=== PATIENT | female | born 1995 | race Caucasian/White ===

== ENCOUNTER 2021-04-13 12:28 | Emergency (ER) | payer OTHER, SELFPAY ==
--- NOTE | ~2021-04-13 | CT_ITS ---
EXAMINATION: CT abdomen pelvis wo con DATE: 04/13/2021 14:01 INDICATION: Right flank pain TECHNIQUE: Computed tomography (CT) of the abdomen and pelvis was performed without intravenous contr ast. The dose-length product (DLP) was 356.09 mGy-cm. Automated exposure control and iterative recons truction technique were employed. COMPARISON: None FINDINGS: The lung bases are clear. The heart size is normal. The liver, spleen, pancreas, gallbladde r, and adrenal glands are normal. There is a 3 mm nonobstructing stone of the left kidney. No stones are identified in the right kidney, the ureters, or the bladder. There is no hydronephrosis or hydrou reter. There is mild fat stranding surrounding the urinary bladder. No pathologically enlarged abdomi nal or pelvic lymph nodes are identified. There is an increase in number of nonpathologically enlarge d retroperitoneal lymph nodes, likely reactive. There is no free intraperitoneal gas or evidence of b owel obstruction. Surgical changes in the cecum likely reflect prior appendectomy. There is a small f at-containing umbilical hernia. IMPRESSION: 1. Fat stranding surrounding urinary bladder which can be seen in the setting cystitis. 2. Nonobstructing left nephrolithiasis. Reviewed, dictated and finalized at location A. IMPRESSION: 1. Fat stranding surrounding urinary bladder which can be seen in the setting c ystitis. 2. Nonobstructing left nephrolithiasis.
[2021-04-13 12:35] VITALS: BP 165/74; PULSE 89; RESP 20; TEMP 36.7; O2SAT 96
[2021-04-13 13:08] LABS: Add Urine Microscopic? YES; Appearance Urine Sl Cloudy (Clear); Bilirubin Urine Negative (Negative); Blood Urine 3+ (Negative); Color Urine Brown (Yellow); Glucose Urine UA Negative (Negative); Ketones Urine Negative (Negative); Leukocyte Esterase Ur 2+ LEU/UL (Negative); Nitrate Urine Positive (Negative); Protein Urine 2+ (Negative); Specific Grav Ur >= 1.030 (1.010-1.020); Urobilinogen Urine 0.2 mg/dL (0.2-1.0)
[2021-04-13 13:16] LABS: Bacteria Urine 2+ /hpf; Squamous Epithelial Cell Urine Few /hpf (Few); WBC Urine 31-50 /hpf (0-3)
[2021-04-13 13:27] LABS: Basophils Absolute Auto 0.06 K/mm3 (0.00-0.10); Basophils Percent Auto 0.4 % (0.0-1.0); Eosinophils Absolute Auto 0.45 K/mm3 (0.02-0.50); Eosinophils Percent Auto 3.2 % (1.0-6.0); Hematocrit 37.7 % (35.0-49.0); Hemoglobin 12.2 g/dL (12.0-15.0); Immature Granulocyte Absolute 0.05 K/mm3 (0.00-0.00); Immature Granulocyte Percent A 0.4 % (0.0-0.0); Lymphocytes Absolute Auto 3.14 K/mm3 (1.10-4.50); Lymphocytes Percent Auto 22.1 % (18.0-42.0); Mean Corpuscular HGB Conc 32.4 g/dL (32.0-36.0); Mean Corpuscular Hemoglobin 30.2 pg (27.0-31.0); Mean Corpuscular Volume 93.3 fL (78.0-102.0); Mean Platelet Volume 9.6 fl (9.2-11.8); Monocytes Absolute Auto 1.14 K/mm3 (0.10-0.90); Neutrophils Absolute Auto 9.4 K/mm3 (1.7-7.2); Neutrophils Percent Auto 65.9 % (50.0-70.0); Platelet Count Result 285 K/mm3 (150-420); Red Blood Count 4.04 M/mm3 (4.20-5.40); White Blood Count 14.2 K/mm3 (4.8-10.8)
[2021-04-13 13:31] LABS: Urine Pregnancy Test Negative
[2021-04-13 13:42] LABS: Alanine Aminotransferase 36 U/L (14-59); Albumin Level 3.5 g/dL (3.4-5.0); Alkaline Phosphatase 71 U/L (46-116); Anion Gap 10 mmol/L (8-16); Aspartate Amino Transferase 11 U/L (15-37); Bilirubin,Total 0.3 mg/dL (0.00-1.00); Blood Urea Nitrogen 14 mg/dL (7-18); Calcium 8.7 mg/dL (8.5-10.1); Carbon Dioxide 27 mmol/L (21-32); Chloride 104 mmol/L (98-108); Estimated CRCL calculation 84 ml/min; Estimated Glomerular Filt Rate > 60; Glucose 89 mg/dL (70-99); Osmolality Calculated 291 mOsm/kg (285-295); Potassium 3.9 mmol/L (3.5-5.1); Sodium 141 mmol/L (136-145); Total Protein 7.4 g/dL (6.4-8.2)
[2021-04-13 13:54] LABS: Pregnancy On Board Control Positive
--- NOTE | 2021-04-13 14:14 | PC.NURSE ---
no needs at this time. awaiting ct results.
--- NOTE | 2021-04-13 14:18 | ED.FEMALEGU ---
HPI - Female Genitourinary General Chief complaint: Urogenital-Female Stated complaint: possible bladder infection Time Seen by Provider: 04/13/21 12:40 Source: patient Mode of arrival: ambulatory Limitations: no limitations History of Present Illness HPI Narrative: Patient comes in after having after having pain moderately severe, sharp, starting over her bladder area on Saturday. This has been ongoing since then. Then this am she states she started having pain in her back mostly on the right side, which has also been sharp. She complains of frequency, urgency, and dysuria over the last 2 days, which have been ongoing getting her attention. MD elicited complaint: dysuria and UTI Onset (ago): day(s) Location of symptoms: low back (radiating to genital area) Severity: moderate Quality of pain: sharp Consistency: intermittent Vaginal discharge: none Vaginal bleeding: none Urinary symptoms: Dysuria, Urgency and Frequency Exacerbating factors: urination Associated symptoms: denies other symptoms Treatment prior to arrival: none Patient : No Related Data Home Medications Medication Instructions Recorded Confirmed bupropion HCl 300 mg PO DAILY 04/13/21 04/13/21 omeprazole 40 mg PO DAILY 04/13/21 04/13/21 Allergies Allergy/AdvReac Type Severity Reaction Status Date / Time pain medication during labor AdvReac Unknown Uncoded 04/13/21 13:37 Review of Systems ENT: Reports system reviewed and no additional complaints, except as documented Cardiovascular: Cardiovascular: Reports no additional cardiovascular complaints Respiratory: Respiratory: Reports no additional respiratory complaints Gastrointestinal: Gastrointestinal: Reports no additional gastrointestinal complaints Genitourinary: Genitourinary: Reports no additional female genitourinary complaints Musculoskeletal: Musculoskeletal: Reports no additional musculoskeletal complaints Integumentary/Breasts: Skin/Breast: Reports system reviewed and no additional complaints, except as docu Neurologic: Reports system reviewed and no additional complaints, except as documented Psychiatric: Psychiatric: Reports no additional psychiatric complaints Endocrine: Endocrine: Reports no additional endocrine complaints Hematologic/Lymphatic: Hematologic/Lymphatic: Reports no additional hematologic/lymphatic complaints Allergic/Immunologic: Allergic/Immunologic: Reports no additional allergic/immunologic complaints PMFSH Past Medical History Medical History (Updated 04/14/21 @ 00:01 by Nadine Lee) No significant past medical history Umbilical hernia Surgical History Surgical History (Updated 04/13/21 @ 15:17 by Kalin Bacon MD) H/O tubal ligation History of tonsillectomy Hx of appendectomy Family History Family History (Updated 04/13/21 @ 15:18 by Kalin Bacon MD) Father Heart disease Mother Heart disease Social History Social History (Updated 04/13/21 @ 15:18 by Kalin Bacon MD) Smoking status: Former smoker Alcohol intake: never Exam Const: General: no acute distress and alert Orientation/consciousness: patient oriented x3 HENMT: Head: normal to inspection Ears: external ears normal General nose exam: Normal external nose present Mouth: Yes Normal oral and palatal mucosa present Throat: posterior oropharynx normal Eyes: Conjunctivae: conjunctivae normal Neck: Neck: normal visual inspection and no lymphadenopathy Chest: Chest palpation & inspection: normal inspection of the chest Resp: Effort & Inspection: normal respiratory effort Auscultation: clear to auscultation bilaterally Cardio: Rate: regular rate Rhythm: regular rhythm GI: GI Palp: Yes Soft to palpation (mild tenderness over bladder, mild flank pain on right over kidney area ) Skin: General skin exam: normal color Neuro: General: patient oriented x3, moves all extremities, no meningeal signs and no focal motor deficits Extrem: General:
[2021-04-13 14:36] VITALS: BP 113/70; PULSE 73; RESP 20; TEMP 36.8; O2SAT 99
[2021-04-13] MEDS: cefTRIAXone 1 GM VIAL IM (14:51)
== END 2021-04-13 15:07 | disposition home or self-care (01) ==
PROVIDERS: Emergency Provider Emergency Medicine; PCP Physician Assistant
DX: N12 Tubulo-interstitial nephritis, not specified as acute or chronic (principal)
CPT/HCPCS: 36415; 74176; 80053; 81001; 81025; 85025; 87077; 87086; 87088; 87186; 96372; 99283; 99284; J0696

== ENCOUNTER 2022-09-19 18:52 | Emergency (ER) | payer OTHER, SELFPAY ==
[2022-09-19 19:20] VITALS: BP 124/86; PULSE 77; RESP 18; TEMP 36.4; O2SAT 97
[2022-09-19 20:03] LABS: Strep Group A RT-PCR NOT DETECTED (Negative)
[2022-09-19 20:11] LABS: Influenza A QL RT-PCR Negative (Negative); Influenza B QL RT-PCR Negative (Negative); RSV RNA, RT-PCR Negative (Negative); SARS-CoV-2 RNA PCR Negative (Negative)
--- NOTE | 2022-09-19 20:14 | ED_ITS ---
HPI - URI/Sore Throat General Chief Complaint: Upper Respiratory Infection Stated Complaint: trouble breathing Time Seen by Provider: 09/19/22 19:25 Related Data Home Medications Medication Instructions Recorded Confirmed bupropion HCl 300 mg 24 hr tablet, 300 mg PO DAILY 04/13/21 09/19/22 extended release omeprazole 40 mg capsule,delayed 40 mg PO DAILY 04/13/21 09/19/22 release Allergies Allergy/AdvReac Type Severity Reaction Status Date / Time pain medication during labor AdvReac Unknown Uncoded 04/13/21 13:37 [facility] Past Medical History Medical History (Updated 04/14/21 @ 00:01 by Nadine Lee) No significant past medical history Umbilical hernia Surgical History Surgical History (Updated 04/13/21 @ 15:17 by Kalin Bacon MD) H/O tubal ligation History of tonsillectomy Hx of appendectomy Family History Family History (Updated 04/13/21 @ 15:18 by Kalin Bacon MD) Father Heart disease Mother Heart disease Social History Social History (Updated 04/13/21 @ 15:18 by Kalin Bacon MD) Smoking status: Former smoker Alcohol intake: never Course Vital Signs Vital signs: Vital Signs Temperature 36.4 C 09/19/22 19:20 Pulse Rate 77 09/19/22 19:20 Respiratory Rate 18 09/19/22 19:20 Blood Pressure 124/86 09/19/22 19:20 Pulse Oximetry 97 09/19/22 19:20 Oxygen Delivery Room Air 09/19/22 19:20 Temperature 36.4 C 09/19/22 19:20 Pulse Rate 77 09/19/22 19:20 Respiratory Rate 18 09/19/22 19:20 Blood Pressure 124/86 09/19/22 19:20 Pulse Oximetry 97 09/19/22 19:20 Oxygen Delivery Room Air 09/19/22 19:28 MDM - URI/Sore Throat Lab Data Labs: Lab Results 09/19/22 09/19/22 Range/Units 19:44 19:44 Influenza A (RT-PCR) Negative (Negative) Influenza B (RT-PCR) Negative (Negative) RSV (RT-PCR) Negative (Negative) SARS-CoV-2 RNA (RT-PCR) Negative (Negative) Group A Strep (PCR) Not detected (Negative) Discharge Plan Discharge Prescriptions: No Action omeprazole 40 mg capsule,delayed release(DR/EC) 40 mg PO DAILY bupropion HCl 300 mg tablet extended release 24 hr 300 mg PO DAILY Follow-up/Referrals: Shashi,Jay Cody MD [Primary Care Provider] -
--- NOTE | 2022-09-19 20:14 | ED.URI ---
HPI - URI/Sore Throat General Chief Complaint: Upper Respiratory Infection Stated Complaint: trouble breathing Time Seen by Provider: 09/19/22 19:25 History of Present Illness HPI Narrative: 27-year-old female patient with the history of chronic sinus drainage and the environmental allergies is here with complaints of having had some cough and difficulty breathing since 4:00 p.m. this evening. She states that she has also experienced some sore throat and apparently was exposed to somebody with strep throat a week ago. Reports no fever or chills. Is up-to-date on COVID vaccination. No COVID or flu exposure. Patient states that she has been feeling better since she is here. Generally in good health. Related Data Home Medications Medication Instructions Recorded Confirmed bupropion HCl 300 mg 24 hr tablet, 300 mg PO DAILY 04/13/21 09/19/22 extended release omeprazole 40 mg capsule,delayed 40 mg PO DAILY 04/13/21 09/19/22 release Allergies Allergy/AdvReac Type Severity Reaction Status Date / Time pain medication during labor AdvReac Unknown Uncoded 04/13/21 13:37 Review of Systems Review of Systems: All systems reviewed & are unremarkable except as noted in HPI and below Constitutional: Constitutional: Reports no additional constitutional complaints, Denies chills, Denies fatigue, Denies fever(s) and Denies weakness Eyes: Eyes: Reports no additional eye complaints ENT: Reports system reviewed and no additional complaints, except as documented and Reports nasal congestion Cardiovascular: Cardiovascular: Reports no additional cardiovascular complaints Respiratory: Respiratory: Reports cough Gastrointestinal: Gastrointestinal: Reports no additional gastrointestinal complaints Genitourinary: Genitourinary: Reports no additional female genitourinary complaints Musculoskeletal: Musculoskeletal: Reports no additional musculoskeletal complaints Integumentary/Breasts: Skin/Breast: Reports system reviewed and no additional complaints, except as docu Neurologic: Reports system reviewed and no additional complaints, except as documented Psychiatric: Psychiatric: Reports no additional psychiatric complaints Endocrine: Endocrine: Reports no additional endocrine complaints Hematologic/Lymphatic: Hematologic/Lymphatic: Reports no additional hematologic/lymphatic complaints Allergic/Immunologic: Allergic/Immunologic: Reports no additional allergic/immunologic complaints PMFSH Past Medical History Medical History No significant past medical history Umbilical hernia Surgical History Surgical History H/O tubal ligation History of tonsillectomy Hx of appendectomy Family History Family History Father Heart disease Mother Heart disease Social History Social History Smoking status: Former smoker Alcohol intake: never Exam Narrative: Alert female who appears healthy and in no acute distress. Stable vital signs. Afebrile. SpO2 is 97% on room air. HEENT: normocephalic. Pupils are equal and reactive to light. EOMs are intact. No obvious nasal drainage. Patient does have some postnasal drip. She also has some sinus tenderness. There is mild erythema of the posterior pharyngeal wall noted without any exudates. Neck is supple and there are no palpable lymph nodes. Breath sounds are audible bilaterally. Heart tones are regular. Rest of the physical examination is unremarkable. Course Course Emergency Course: Patient is negative for strep and her flu, COVID and RSV are also negative. I have discussed sinus infection Vital Signs Vital signs: Vital Signs Temperature 36.4 C 09/19/22 19:20 Pulse Rate 77 09/19/22 19:20 Respiratory Rate 18 09/19/22 19:20 Blood Pressur
[2022-09-19 20:58] VITALS: BP 122/82; PULSE 69; RESP 20; TEMP 36.7; O2SAT 99
== END 2022-09-19 21:00 | disposition home or self-care (01) ==
PROVIDERS: Emergency Provider Emergency Medicine; PCP Family Medicine
DX: J32.9 Chronic sinusitis, unspecified (principal); Z20.822 Contact with and (suspected) exposure to COVID-19
CPT/HCPCS: 87637; 87651; 99283

== ENCOUNTER 2022-12-24 17:00 | Emergency (ER) | payer OTHER, SELFPAY ==
--- NOTE | ~2022-12-24 | CT_ITS ---
EXAMINATION: CT abdomen pelvis wo con DATE: 12/24/2022 18:14 INDICATION: Left flank pain TECHNIQUE: Computed tomography (CT) of the abdomen and pelvis was performed without intravenous contr ast. The dose-length product was 1062.94 mGy-cm. . Automated exposure control and iterative reconstru ction technique were employed. COMPARISON: CT dated 04/13/2021. FINDINGS: There is a 3 mm right middle lobe nodule, stable. No significant pleural or pericardial eff usion. Heart size normal. The liver, spleen, pancreas, adrenal glands and right kidney are unremarkable. There is a 3 mm left U VJ stone with moderate hydronephrosis. There is a punctate nonobstructing 1 mm left renal stone. Nono bstructive bowel gas pattern. Moderate colonic fecal loading. Status post appendectomy. No free air o r free fluid. No acute osseous abnormality. Small fat-containing umbilical hernia. IMPRESSION: 1. Left UPJ stone measuring 3 mm with moderate left hydronephrosis. 2: Nonobstructing left nephrolithiasis. Reviewed, dictated and finalized at location A.
[2022-12-24 17:00] VITALS: BP 124/90; PULSE 65; RESP 16; TEMP 36.5; O2SAT 98
--- NOTE | 2022-12-24 17:21 | ED.GENADULT ---
HPI - General Adult General Chief complaint: Abdominal Pain Stated complaint: left flank pain Time Seen by Provider: 12/24/22 17:08 History of Present Illness HPI narrative: the patient is a 27-year-old woman was otherwise healthy, with history of obesity, depression, GERD. Status post tubal ligation, appendectomy and umbilical herniorrhaphy. since yesterday morning at 9:30 a.m., the patient has had left lower back pain radiating to the left posterior flank region. Does occasionally travel anteriorly to the lower groin regions bilaterally. She has taken Tylenol which resolved her pain. The pain is intermittent, waxing and waning in intensity, not radiating elsewhere in the abdomen. Occasional dysuria but no urinary frequency or urgency. Intermittent nausea but no vomiting. No constipation or diarrhea. No chest pain. No URI symptoms such as cough or congestion. No hematochezia or melena. Last menstrual period 1 month ago. Related Data Home Medications Medication Instructions Recorded Confirmed omeprazole 40 mg capsule,delayed 40 mg PO DAILY 04/13/21 12/24/22 release bupropion HCl 150 mg 24 hr tablet, 150 mg PO DAILY 12/24/22 12/24/22 extended release minocycline 50 mg capsule 50 mg PO DAILY 12/24/22 12/24/22 polyethylene glycol 3350 17 17 g PO DAILY 12/24/22 12/24/22 gram/dose oral powder (ClearLax) Allergies Allergy/AdvReac Type Severity Reaction Status Date / Time promethazine [From Phenergan] Allergy Other Verified 12/24/22 17:15 Review of Systems Review of Systems: All systems reviewed & are unremarkable except as noted in HPI and below Constitutional: Constitutional: Reports as per HPI, Reports no additional constitutional complaints, Denies chills, Denies excessive sweating, Denies fatigue, Denies fever(s), Denies headache(s) and Denies weakness Eyes: Eyes: Reports as per HPI, Reports no additional eye complaints, Denies change in vision and Denies photophobia ENT: Reports system reviewed and no additional complaints, except as documented, Reports as per HPI, Denies dysphagia, Denies vertigo, Denies dizziness, Denies headache(s), Denies lip swelling, Denies nasal congestion, Denies sore throat, Denies throat swelling and Denies tongue swelling Cardiovascular: Cardiovascular: Reports as per HPI, Reports no additional cardiovascular complaints, Denies chest pain, Denies syncope, Denies rapid heart rate and Denies dyspnea Respiratory: Respiratory: Reports as per HPI, Reports no additional respiratory complaints, Denies chest congestion, Denies cough, Denies dyspnea and Denies wheezing Gastrointestinal: Gastrointestinal: Reports as per HPI, Reports no additional gastrointestinal complaints, Denies abdominal pain, Denies constipation, Denies dysphagia, Denies diarrhea, Reports nausea and Denies vomiting Genitourinary: Genitourinary: Reports as per HPI, Denies hematuria, Denies urinary frequency, Reports dysuria, Denies urinary incontinence and Denies urinary urgency Comments: left flank pain Musculoskeletal: Musculoskeletal: Reports no additional musculoskeletal complaints, Reports back pain, Denies myalgias, Denies arthralgias, Denies joint swelling and Denies numbness Integumentary/Breasts: Skin/Breast: Reports system reviewed and no additional complaints, except as docu, Denies pruritus, Denies erythema, Denies rash and Denies skin ulcer Neurologic: Reports system reviewed and no additional complaints, except as documented, Reports as per HPI, Denies confusion, Denies vertigo, Denies dizziness, Denies syncope, Denies headache(s), Denies focal weakness, Denies numbness and Denies weakness Psychiatric: Psychiatric: Reports as per HPI, Denies anxiety, Denies confusion, Denies depression, Denies homicidal ideation and Denies suicidal ideation Endocrine: Endocrine: Reports no additional endocrine complaints, Denies excessive sweating, Denies fatigue, Denies polydipsia and Denies polyuria Hematologic/Lymphatic:
[2022-12-24] MEDS: IBUPROFEN 400 MG TABLET 800 MG PO (17:27)
[2022-12-24] MEDS: ONDANSETRON HCL ODT 4 MG TABLET 8 MG PO (17:27)
[2022-12-24 17:28] LABS: Appearance Urine Clear (Clear); Bilirubin Urine Negative (Negative); Blood Urine 1+ (Negative); Color Urine Yellow (Yellow); Glucose Urine UA Negative (Negative); Ketones Urine Negative (Negative); Leukocyte Esterase Ur Negative LEU/UL (Negative); Nitrate Urine Negative (Negative); Protein Urine Negative (Negative); Specific Grav Ur >= 1.030 (1.010-1.020); Urobilinogen Urine 0.2 mg/dL (0.2-1.0); pH Urine 5.5 (5.0-8.0)
[2022-12-24] MEDS: traMADol HCL (*CRX) 50 MG TABLET 100 MG PO (17:28)
[2022-12-24 17:29] LABS: Pregnancy On Board Control Positive; Urine Pregnancy Test Negative
[2022-12-24 17:33] LABS: Basophils Absolute Auto 0.05 K/mm3 (0.00-0.10); Basophils Percent Auto 0.6 % (0.0-1.0); Eosinophils Percent Auto 3.7 % (1.0-6.0); Hematocrit 39.7 % (35.0-49.0); Hemoglobin 12.9 g/dL (12.0-15.0); Immature Granulocyte Absolute 0.01 K/mm3 (0.00-0.00); Immature Granulocyte Percent A 0.1 % (0.0-0.0); Lymphocytes Absolute Auto 3.26 K/mm3 (1.10-4.50); Lymphocytes Percent Auto 40.4 % (18.0-42.0); Mean Corpuscular HGB Conc 32.5 g/dL (32.0-36.0); Mean Corpuscular Hemoglobin 29.9 pg (27.0-31.0); Mean Corpuscular Volume 92.1 fL (78.0-102.0); Mean Platelet Volume 10.1 fl (9.2-11.8); Monocytes Absolute Auto 0.57 K/mm3 (0.10-0.90); Monocytes Percent Auto 7.1 % (2.0-11.0); Neutrophils Absolute Auto 3.9 K/mm3 (1.7-7.2); Neutrophils Percent Auto 48.1 % (50.0-70.0); Platelet Count Result 322 K/mm3 (150-420); Red Blood Count 4.31 M/mm3 (4.20-5.40); Red Cell Distribution Width 12.3 % (11.6-14.4); White Blood Count 8.1 K/mm3 (4.8-10.8)
[2022-12-24 17:41] LABS: Add Urine Microscopic? YES; Bacteria Urine 1+ /hpf; Squamous Epithelial Cell Urine Moderate /hpf (Few); WBC Urine 0-3 /hpf (0-3)
[2022-12-24 18:05] LABS: Alanine Aminotransferase 43 U/L (14-59); Albumin Level 3.7 g/dL (3.4-5.0); Alkaline Phosphatase 82 U/L (46-116); Amylase 31 U/L (25-115); Anion Gap 10 mmol/L (8-16); Aspartate Amino Transferase 25 U/L (15-37); Bilirubin,Total 0.4 mg/dL (0.00-1.00); Blood Urea Nitrogen 9 mg/dL (7-18); Calcium 8.7 mg/dL (8.5-10.1); Carbon Dioxide 27 mmol/L (21-32); Chloride 102 mmol/L (98-108); Estimated CRCL calculation 89 ml/min; Estimated Glomerular Filt Rate > 60; Glucose 94 mg/dL (70-99); Lipase 24 U/L (16-77); Osmolality Calculated 286 mOsm/kg (285-295); Potassium 3.5 mmol/L (3.5-5.1); Sodium 139 mmol/L (136-145); Total Protein 7.9 g/dL (6.4-8.2)
--- NOTE | 2022-12-24 18:16 | PC.NURSE ---
PT IS IN CT AT THIS TIME. WILL CONTINUE TO MONITOR.
[2022-12-24] MEDS: TAMSULOSIN HCL 0.4 MG CAPSULE PO (18:47)
[2022-12-24 18:55] VITALS: BP 121/88; PULSE 63; RESP 18; O2SAT 100
== END 2022-12-24 18:55 | disposition home or self-care (01) ==
PROVIDERS: Emergency Provider Emergency Medicine; PCP Family Medicine
DX: N20.1 Calculus of ureter (principal); N20.0 Calculus of kidney; Z87.891 Personal history of nicotine dependence
CPT/HCPCS: 36415; 74176; 80053; 81001; 81025; 82150; 83690; 85025; 99284; A9270

== ENCOUNTER 2022-12-25 04:12 | Emergency (ER) | payer OTHER, SELFPAY ==
[2022-12-25 04:15] VITALS: BP 121/83; PULSE 88; RESP 20; TEMP 36.5; O2SAT 98
[2022-12-25] MEDS: ONDANSETRON INJ 4 MG/2 ML VIAL IV PUSH ×2 (04:28→05:08)
[2022-12-25] MEDS: KETOROLAC 30 MG/ML VIAL (*BKC) IV PUSH (04:28)
[2022-12-25] MEDS: diphenhydrAMINE HCl INJ 50 MG/ML VIAL IV PUSH (04:28)
[2022-12-25] MEDS: SODIUM CHLORIDE 0.9% IV 1,000 ML 999 ML IV CONT ×2 (04:28→05:08)
[2022-12-25 04:32] LABS: Basophils Absolute Auto 0.03 K/mm3 (0.00-0.10); Basophils Percent Auto 0.2 % (0.0-1.0); Eosinophils Absolute Auto 0.04 K/mm3 (0.02-0.50); Eosinophils Percent Auto 0.3 % (1.0-6.0); Hematocrit 37.6 % (35.0-49.0); Hemoglobin 12.4 g/dL (12.0-15.0); Immature Granulocyte Absolute 0.06 K/mm3 (0.00-0.00); Immature Granulocyte Percent A 0.4 % (0.0-0.0); Lymphocytes Absolute Auto 1.22 K/mm3 (1.10-4.50); Lymphocytes Percent Auto 8.4 % (18.0-42.0); Mean Corpuscular Hemoglobin 30.1 pg (27.0-31.0); Mean Corpuscular Volume 91.3 fL (78.0-102.0); Monocytes Absolute Auto 0.65 K/mm3 (0.10-0.90); Monocytes Percent Auto 4.5 % (2.0-11.0); Neutrophils Absolute Auto 12.6 K/mm3 (1.7-7.2); Neutrophils Percent Auto 86.2 % (50.0-70.0); Platelet Count Result 287 K/mm3 (150-420); Red Blood Count 4.12 M/mm3 (4.20-5.40); Red Cell Distribution Width 12.2 % (11.6-14.4); White Blood Count 14.6 K/mm3 (4.8-10.8)
[2022-12-25 04:48] LABS: Alanine Aminotransferase 40 U/L (14-59); Albumin Level 3.6 g/dL (3.4-5.0); Alkaline Phosphatase 75 U/L (46-116); Anion Gap 9 mmol/L (8-16); Aspartate Amino Transferase 21 U/L (15-37); Bilirubin,Total 0.4 mg/dL (0.00-1.00); Blood Urea Nitrogen 12 mg/dL (7-18); Calcium 8.5 mg/dL (8.5-10.1); Carbon Dioxide 28 mmol/L (21-32); Chloride 101 mmol/L (98-108); Estimated CRCL calculation 65 ml/min; Estimated Glomerular Filt Rate 56; Glucose 143 mg/dL (70-99); Osmolality Calculated 287 mOsm/kg (285-295); Potassium 3.7 mmol/L (3.5-5.1); Sodium 138 mmol/L (136-145); Total Protein 7.6 g/dL (6.4-8.2)
--- NOTE | 2022-12-25 04:56 | ED.GENADULT ---
HPI - General Adult General Chief complaint: Unspecified Stated complaint: Na[place] Time Seen by Provider: 12/25/22 04:20 History of Present Illness HPI narrative: ?The patient is a 27-year-old woman was otherwise healthy, with history of obesity, depression, GERD.? Status post tubal ligation, appendectomy and umbilical herniorrhaphy. She was seen here earlier this evening by me due to mild left lower back pain radiating to the left posterior flank region with dysuria and intermittent nausea but no emesis. Her workup revealed a left ureteral calculus 3 mm at the L UVJ with moderate left hydronephrosis. She was treated with oral Tylenol, Tramadol, Motrin and Zoftan ODT. She had resolution of her paijn and had not required IV fluids. A dose of Flomax had been given as well. She looked well and was discharged home with prescriptions for Zofran, Flomax, Tramadol, Toradol. She was not able to fill her prescriptions. Her pain had increased in the Left lower back and left flank region after discharge from the ED earlier. She took Tylenol at home without relief. Her nausea increased at home, then she had emesis at home, approximately 5 episodes since midnight this morning. She comes back for further evaluation as she has not been able to hydrate herself, her emesis continues, and her pain is getting worse. No other new complaints. She does have chills and diaphoresis with the emesis episodes. Related Data Home Medications Medication Instructions Recorded Confirmed omeprazole 40 mg capsule,delayed 40 mg PO DAILY 04/13/21 12/25/22 release bupropion HCl 150 mg 24 hr tablet, 150 mg PO DAILY 12/24/22 12/25/22 extended release minocycline 50 mg capsule 50 mg PO DAILY 12/24/22 12/25/22 polyethylene glycol 3350 17 17 g PO DAILY 12/24/22 12/25/22 gram/dose oral powder (ClearLax) Allergies Allergy/AdvReac Type Severity Reaction Status Date / Time promethazine [From Phenergan] Allergy Other Verified 12/24/22 17:15 Review of Systems Review of Systems: All systems reviewed & are unremarkable except as noted in HPI and below Constitutional: Constitutional: Reports as per HPI, Reports no additional constitutional complaints, Reports chills, Reports excessive sweating, Reports fatigue, Denies fever(s), Denies headache(s) and Reports weakness Eyes: Eyes: Reports as per HPI, Reports no additional eye complaints, Denies change in vision and Denies photophobia ENT: Reports system reviewed and no additional complaints, except as documented, Reports as per HPI, Denies dysphagia, Denies vertigo, Denies dizziness, Denies headache(s), Denies lip swelling, Denies nasal congestion, Denies sore throat, Denies throat swelling and Denies tongue swelling Cardiovascular: Cardiovascular: Reports as per HPI, Reports no additional cardiovascular complaints, Denies chest pain, Denies syncope, Denies rapid heart rate and Denies dyspnea Respiratory: Respiratory: Reports as per HPI, Reports no additional respiratory complaints, Denies chest congestion, Denies cough, Denies dyspnea and Denies wheezing Gastrointestinal: Gastrointestinal: Reports as per HPI, Reports no additional gastrointestinal complaints, Reports abdominal pain, Denies constipation, Denies dysphagia, Denies diarrhea, Reports nausea and Reports vomiting Genitourinary: Genitourinary: Reports as per HPI, Denies hematuria, Denies urinary frequency, Reports dysuria, Denies urinary incontinence and Denies urinary urgency Musculoskeletal: Musculoskeletal: Reports no additional musculoskeletal complaints, Denies back pain, Denies myalgias, Denies arthralgias, Denies joint swelling and Denies numbness Integumentary/Breasts: Skin/Breast: Reports system reviewed and no additional complaints, except as docu, Denies pruritus, Denies erythema, Denies rash and Denies skin ulcer Neurologic: Reports system reviewed and no additional complaints, except as documented, Reports as per HPI, Denies confusion, Denies vertigo, Denie
[2022-12-25] MEDS: METOCLOPRAMIDE HCL INJ 10 MG/2 ML VIAL IV PUSH (05:08)
[2022-12-25] MEDS: cefTRIAXone 2 GM/NS 100 ML 2 GM/100 ML BAG IVPB (05:36)
[2022-12-25 05:46] LABS: Appearance Urine Clear (Clear); Bilirubin Urine Negative (Negative); Blood Urine Trace-Intact (Negative); Color Urine Light Yellow (Yellow); Glucose Urine UA Negative (Negative); Ketones Urine Negative (Negative); Leukocyte Esterase Ur Trace (Negative); Nitrate Urine Negative (Negative); Protein Urine Negative (Negative); Urobilinogen Urine 0.2 mg/dL (0.2-1.0); pH Urine 6.5 (5.0-8.0)
[2022-12-25 05:50] LABS: Add Urine Microscopic? YES; Bacteria Urine 1+ /hpf; RBC Urine 0-2 /hpf (0-2); Squamous Epithelial Cell Urine Moderate /hpf (Few); WBC Urine 0-3 /hpf (0-3)
[2022-12-25 06:13] VITALS: BP 131/81; PULSE 88; RESP 20; TEMP 36.7; O2SAT 100
[2022-12-25] MEDS: HYDROcodone/acetaminophen (*CRX) 5-325 MG TABLET 1 TAB PO (06:25)
[2022-12-25] MEDS: ONDANSETRON HCL ODT 4 MG TABLET 8 MG PO (06:26)
== END 2022-12-25 06:31 | disposition home or self-care (01) ==
PROVIDERS: Emergency Provider Emergency Medicine
DX: N20.2 Calculus of kidney with calculus of ureter (principal)
CPT/HCPCS: 36415; 80053; 81001; 85025; 96361; 96365; 96375; 96376; 99284; A9270; J0696; J1200; J1885; J2405; J2765; J7030

== ENCOUNTER 2022-12-26 22:18 | Emergency (ER) | payer OTHER, SELFPAY ==
--- NOTE | ~2022-12-26 | CT_ITS ---
EXAMINATION: CT abdomen pelvis wo con DATE: 12/26/2022 22:55 INDICATION: Left lateral and lower quadrant pain. TECHNIQUE: Computed tomography (CT) of the abdomen and pelvis was performed without intravenous contr ast. The dose-length product was 984.78 mGy-cm. Automated exposure control and iterative reconstructi on technique were employed. COMPARISON: CT dated 12/24/2022. FINDINGS: There is a persistent 3 mm left UVJ stone with moderate hydronephrosis and perinephric stra nding. The lung bases are unremarkable. Heart size normal. No significant pleural or pericardial effu bibi. The liver, spleen, pancreas, adrenal glands are unremarkable. There is an extrarenal pelvis of the right kidney. Gallbladder is present. There are shotty retroperitoneal lymph nodes, likely reacti ve. Nonobstructive bowel pattern. No acute osseous abnormality. There is a punctate nonobstructing le ft renal stone. IMPRESSION: 1. Unchanged 3 mm left UVJ stone with moderate hydronephrosis and developing perinephric edema. 2: Punctate nonobstructing left renal stone. Reviewed, dictated and finalized at location A. IMPRESSION: 1. Unchanged 3 mm left UVJ stone with moderate hydronephrosis and developing pe rinephric edema. 2: Punctate nonobstructing left renal stone.
[2022-12-26 22:22] VITALS: BP 127/71; PULSE 90; RESP 18; TEMP 36.7; O2SAT 99
--- NOTE | 2022-12-26 22:26 | ED.ABDPAIN ---
HPI - Abdominal Pain General Chief Complaint: Abdominal Pain Stated Complaint: Abdominal Pain Source: patient Mode of arrival: ambulatory Limitations: no limitations History of Present Illness HPI narrative: 27-year-old female with a history of depression, GERD, status post BTL, status post appendectomy presented to the ER on 12/24/2022 with left flank pain which was secondary to 3 mm left UVJ stone with hydronephrosis without any evidence of urinary tract infection. She return after 6 hours with ongoing pain. After discharge the patient has been having ongoing left flank pain which is radiating to her groin. The patient has nausea and vomiting. No dysuria or hematuria. No fever or chills. the patient is on [place], cephalexin, Flomax. MD elicited complaint: flank pain Pertinent past history: kidney stones Onset (ago): day(s) ( Started 3 days) Pain Consistency: intermittent Location: L flank Radiation: LLQ Exacerbating factors: nothing Relieving factors: nothing Associated symptoms: nausea, vomiting and constipation Related Data Home Medications Medication Instructions Recorded Confirmed omeprazole 40 mg capsule,delayed 40 mg PO DAILY 04/13/21 12/26/22 release bupropion HCl 150 mg 24 hr tablet, 150 mg PO DAILY 12/24/22 12/26/22 extended release minocycline 50 mg capsule 50 mg PO DAILY 12/24/22 12/26/22 polyethylene glycol 3350 17 17 g PO DAILY 12/24/22 12/26/22 gram/dose oral powder (ClearLax) Allergies Allergy/AdvReac Type Severity Reaction Status Date / Time promethazine [From Phenergan] Allergy Other Verified 12/26/22 22:27 Review of Systems Review of Systems: All systems reviewed & are unremarkable except as noted in HPI and below Constitutional: Constitutional: Reports as per HPI and Reports no additional constitutional complaints Eyes: Eyes: Reports as per HPI and Reports no additional eye complaints ENT: Reports system reviewed and no additional complaints, except as documented and Reports as per HPI Cardiovascular: Cardiovascular: Reports as per HPI and Reports no additional cardiovascular complaints Respiratory: Respiratory: Reports as per HPI and Reports no additional respiratory complaints Gastrointestinal: Gastrointestinal: Reports as per HPI and Reports no additional gastrointestinal complaints Comments: left flank pain which is radiating anteriorly. She has nausea with vomiting. Genitourinary: Comments: Left flank pain Musculoskeletal: Musculoskeletal: Reports no additional musculoskeletal complaints Integumentary/Breasts: Skin/Breast: Reports system reviewed and no additional complaints, except as docu and Reports as per HPI Neurologic: Reports system reviewed and no additional complaints, except as documented and Reports as per HPI Psychiatric: Psychiatric: Reports no additional psychiatric complaints and Reports as per HPI Endocrine: Endocrine: Reports no additional endocrine complaints and Reports as per HPI Hematologic/Lymphatic: Hematologic/Lymphatic: Reports no additional hematologic/lymphatic complaints and Reports as per HPI Allergic/Immunologic: Allergic/Immunologic: Reports no additional allergic/immunologic complaints and Reports as per HPI [facility] Past Medical History Medical History (Updated 12/27/22 @ 00:14 by Eduardo Bauer MD) Kidney stone No significant past medical history Umbilical hernia Surgical History Surgical History H/O tubal ligation History of tonsillectomy Hx of appendectomy Family History Family History Father Heart disease Mother Heart disease Social History Social History Smoking status: Former smoker Alcohol intake: never Exam Const: General: ill appearing Nutritional Appearance: obese Orientation/consciousness: patient oriented x3 Limitations: no
[2022-12-26 22:41] LABS: Basophils Absolute Auto 0.06 K/mm3 (0.00-0.10); Basophils Percent Auto 0.5 % (0.0-1.0); Eosinophils Absolute Auto 0.45 K/mm3 (0.02-0.50); Eosinophils Percent Auto 3.5 % (1.0-6.0); Hematocrit 36.2 % (35.0-49.0); Hemoglobin 11.9 g/dL (12.0-15.0); Immature Granulocyte Absolute 0.04 K/mm3 (0.00-0.00); Immature Granulocyte Percent A 0.3 % (0.0-0.0); Lymphocytes Absolute Auto 3.21 K/mm3 (1.10-4.50); Lymphocytes Percent Auto 24.7 % (18.0-42.0); Mean Corpuscular HGB Conc 32.9 g/dL (32.0-36.0); Mean Corpuscular Hemoglobin 30.5 pg (27.0-31.0); Mean Corpuscular Volume 92.8 fL (78.0-102.0); Monocytes Percent Auto 8.5 % (2.0-11.0); Neutrophils Absolute Auto 8.2 K/mm3 (1.7-7.2); Neutrophils Percent Auto 62.5 % (50.0-70.0); Platelet Count Result 308 K/mm3 (150-420); Red Cell Distribution Width 12.2 % (11.6-14.4)
[2022-12-26 22:41] LABS: Appearance Urine Clear (Clear); Bilirubin Urine Negative (Negative); Blood Urine 3+ (Negative); Color Urine Light Yellow (Yellow); Glucose Urine UA Negative (Negative); Ketones Urine Negative (Negative); Leukocyte Esterase Ur 1+ LEU/UL (Negative); Nitrate Urine Negative (Negative); Protein Urine Negative (Negative); Specific Grav Ur >= 1.030 (1.010-1.020); Urobilinogen Urine 0.2 mg/dL (0.2-1.0)
[2022-12-26] MEDS: KETOROLAC 30 MG/ML VIAL (*BKC) IV PUSH (22:41)
[2022-12-26] MEDS: LACTATED RINGERS 1,000 ML 999 ML IV CONT (22:41)
[2022-12-26 22:45] LABS: Add Urine Microscopic? YES; RBC Urine 51-75 /hpf (0-2)
[2022-12-26 22:46] LABS: Bacteria Urine Trace /hpf; Squamous Epithelial Cell Urine Few /hpf (Few)
[2022-12-26 22:48] LABS: Partial Thromboplastin Time 28.1 SEC (23.90-30.70)
[2022-12-26 22:50] LABS: Alanine Aminotransferase 36 U/L (14-59); Albumin Level 3.5 g/dL (3.4-5.0); Alkaline Phosphatase 76 U/L (46-116); Anion Gap 10 mmol/L (8-16); Aspartate Amino Transferase 18 U/L (15-37); Bilirubin,Total 0.3 mg/dL (0.00-1.00); Blood Urea Nitrogen 16 mg/dL (7-18); Calcium 8.8 mg/dL (8.5-10.1); Carbon Dioxide 28 mmol/L (21-32); Chloride 101 mmol/L (98-108); Estimated CRCL calculation 67 ml/min; Estimated Glomerular Filt Rate 59; Glucose 97 mg/dL (70-99); Osmolality Calculated 289 mOsm/kg (285-295); Potassium 3.6 mmol/L (3.5-5.1); Sodium 139 mmol/L (136-145); Total Protein 7.6 g/dL (6.4-8.2)
[2022-12-26 22:52] LABS: Lipase 29 U/L (16-77)
[2022-12-26 22:53] LABS: Lactic Acid Reflex 0.5 mmol/L (0.4-2.0)
[2022-12-26 22:58] VITALS: BP 113/67; PULSE 94; RESP 16; O2SAT 96
[2022-12-26 23:01] VITALS: BP 115/81; PULSE 81; RESP 18; O2SAT 97
[2022-12-26] MEDS: levoFLOXacin 500 MG/D5W 100 ML 500 MG/100 ML BAG 100 MG IVPB (23:35)
[2022-12-27 00:01] VITALS: BP 118/67; PULSE 72; RESP 18; O2SAT 97
[2022-12-27 00:41] VITALS: BP 94/61; PULSE 73; RESP 16; TEMP 36.2; O2SAT 96
--- NOTE | 2022-12-29 14:11 | PC.NURSE ---
final urine culture reviewed, no growth. no change in plan of care
--- NOTE | 2023-01-02 12:54 | PC.NURSE ---
FINAL BLOOD CULTURE RESULTS X2: NO GROWTH AFTER 5 DAYS
== END 2022-12-27 00:58 | disposition short-term general hospital (02) ==
PROVIDERS: Emergency Provider Internal Medicine Critical Care Medicine
DX: N10 Acute pyelonephritis (principal); N13.2 Hydronephrosis with renal and ureteral calculous obstruction; Z87.891 Personal history of nicotine dependence
CPT/HCPCS: 36415; 74176; 80053; 81001; 83605; 83690; 85025; 85730; 87040; 87086; 96361; 96365; 96375; 99284; J1885; J1956; J7120